=== PATIENT | female | born 1950 | race Caucasian/White ===

== ENCOUNTER → 2016-10-17 | Outpatient (CLI) | payer MEDICARE ==
--- NOTE | 2016-10-17 13:48 | US ---
EXAMINATION TYPE: US kidneys/renal and bladder DATE OF EXAM: 10/17/2016 1:16 PM COMPARISON: NONE CLINICAL HISTORY: I10 HTN. high blood pressure EXAM MEASUREMENTS: Right Kidney: 9.7 x 5.6 x 5.5 cm Left Kidney: 10.7 x 5.2 x 6.0 cm TECHNOLOGIST IMPRESSION: Right Kidney: wnl Left Kidney: wnl Bladder: wnl, distended Bilateral Jets seen Yes There is no evidence for hydronephrosis at this point in time. No masses are identified. The urinar y bladder is anechoic. Bilateral ureteral jets are seen. IMPRESSION: Unremarkable study.
== END | disposition home or self-care (01) ==
LOC: RADUSWWP 12:56
PROVIDERS: ATTEND Internal Medicine Endocrinology, Diabetes & Metabolism
DX: I10 Essential (primary) hypertension (principal)
CPT/HCPCS: 76770